=== PATIENT | female | born 2000 | race African-American/Black ===

== ENCOUNTER 2019-01-29 18:08 | Emergency (ER) | payer OTHER, BC ==
[2019-01-29 18:24] VITALS: BP 114/82
[2019-01-29] MEDS ORDERED: METHOCARBAMOL 500 MG TABLET PO ONE (18:52)
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
== END 2019-01-29 19:03 | disposition home or self-care (01) ==
LOC: ER 18:08
DX: S50.811A Abrasion of right forearm, initial encounter (principal); M25.512 Pain in left shoulder; M25.521 Pain in right elbow; V87.7XXA Person injured in collision between other specified motor vehicles (traffic), initial encounter
CPT/HCPCS: 99283